=== PATIENT | male | born 1985 | race Caucasian/White ===

== ENCOUNTER 2019-03-02 13:02 | Emergency (ER) | payer OTHER ==
[2019-03-02] MEDS ORDERED: NS 0.9% 1000 ML** 1,000 ML IV ONE (13:21)
--- OUTSIDE RECORDS SUMMARY | 2019-03-02 13:21 | XMS REPORT | Summary of Care ---
:1985 Author Organization [facility] Address [address] [place] [address] Care Team Providers Name Role Phone Pcp, No Primary Care Provider Unavailable Reason for Visit Reason Comments Alcohol Intoxication Abnormal Lab Encounter Details Date Type Department Care Team Description 02/21/2019 Emergency EMERGENCY DEPARTMENT Larissa Mace, DO [address] [place] [address] [phone] Alcoholic intoxication without complication (Primary Dx); Joan Miguel, DO [address] [place] [address] [phone] Alcohol abuse [address] [place] [address] Allergies Active Allergy Reactions Severity Noted Date Comments Penicillins Rash, Other (See Comments) Low 10/18/2012 convulsions documented as of this encounter (statuses as of 02/21/2019) Medications Medication Sig Dispensed Refills Start Date End Date Status folic acid (FOLVITE) 1 Take 1 tablet by 30 tablet 11 05/14/20182019 Active MG tablet mouth daily propranolol (INDERAL) Take 1 tablet by 90 tablet 1 05/13/2018 05/12/2019 Active 10 MG tablet mouth Three times daily thiamine (B-1) 100 MG Take 1 tablet by 30 tablet 11 05/14/2018 05/13/2019 Active tablet mouth daily gabapentin (NEURONTIN) Taper 400 mg TID 6 capsule 0 05/13/2018 Active 400 MG capsule x 1 day, 400 mg BID x 1 day, then 400 mg daily x 1 day then stop documented as of this encounter (statuses as of 02/21/2019) Active Problems Problem Noted Date Alcohol withdrawal 05/10/2018 Acute alcoholic gastritis without hemorrhage 05/10/2018 Dependence on nicotine from cigarettes 05/10/2018 Alcohol abuse, continuous 07/21/2014 Overview: Monitor for withdrawal Cellulitis of hand 07/21/2014 Overview: ID consult recommends ceftriaxone 2 g IV daily and three days of Clindamycin 900 mg IV Q8H for 3 days. No obvious fluid collection. CT scan read pending. Alcoholic hepatitis 07/21/2014 Overview: Mild. Will rincon patient on alcohol abuse. documented as of this encounter (statuses as of 02/21/2019) Social History Tobacco Use Types Packs/Day Years Used Date Current Every Day Smoker Alcohol Use Drinks/Week oz/Week Comments Yes 5 Cans of beer 5.0 daily Sex Assigned at Date Recorded Not on file Job Start Date Occupation Industry Not on file Not on file Not on file Travel History Travel Start Travel End No recent travel history available. documented as of this encounter Last Filed Vital Signs Vital Sign Reading Time Taken Comments Blood Pressure 139/89 02/21/2019 11:37 AM EST Pulse 96 02/21/2019 11:37 AM EST Temperature 36.9 02/21/2019 11:37 AM EST C (98.5 F) Respiratory Rate 18 02/21/2019 11:37 AM EST Oxygen Saturation 96% 02/21/2019 11:37 AM EST Inhaled Oxygen Concentration - - Weight 86.6 kg (191 lb) 02/21/2019 12:18 AM EST Height 180.3 cm (5' 11") 02/21/2019 12:18 AM EST Body Mass Index 26.64 02/21/2019 12:18 AM EST documented in this encounter Discharge Instructions AttachmentsThe following attachments cannot be sent through Care Everywhere.Alcohol Abuse (Spanish)Alcohol Intoxication (Spanish)documented in this encounter Progress Notes Kavya Sanchez, PRACTICING UROLOGIST - 02/21/2019 8:38 AM EST Social Work Screening Patient Name: Deny Mcwilliams Date of : 1985 County of Residence: [place] Admitting Dx: No admission diagnoses are documented for this encounter. Admitting Provider: Pop Mace DO Referral Type: Substance Abuse Referral Source: Social Work Reason for Referral: Substance Use/Abuse Date: February 21, 2019 Informant: Chart/ Chacorta Pinon MD Informed that pt was transferred from [facility] as no RN was available. Message left on [employer] voicemail to contact SW regarding transferring pt back. Awaiting callback. Interventions Assessed for SW needs. Signature: Kavya Sanchez Date: February 21, 2019 documented in this encounter Plan of Treatment Not on filedocumented as of this encounter Results Not on filedocumented in this encounter Visit Diagnoses Diagnosis Alcoholic intoxication without complication - Primary Alcohol abuse Alcohol abuse, unspecified documented in this encounter Administered Medications Medication Order MAR Action Action Date Dose Rate Site LORazepam (ATIVAN) tablet 1 mg Given 02/21/2019 8:40 AM EST 1 mg 1 mg, Oral, Once, Thu02/21/19 at 0845, For 1 dose LORazepam (ATIVAN) tablet 1 mg Given 02/21/2019 10:49 AM EST 1 mg 1 mg, Oral, Once, Thu02/21/19 at 1030, For 1 dose ondansetron (ZOFRAN-ODT) disintegrating tablet Given 02/21/2019 10:49 AM EST 4 mg 4 mg 4 mg, Oral, Once, Thu02/21/19 at 1030, For 1 dose, Dissolve on tongue., documented in this encounter
[2019-03-02] MEDS ORDERED: Clindamycin CAP* 150 MG PO ONE (13:22)
[2019-03-02] MEDS ORDERED: LORazepam TAB(*) 1 MG PO ONE (13:22)
--- NOTE | 2019-03-02 13:26 | ED ---
Medical Screening - HPI Summary HPI Summary: The patient is a 34 y/o male presenting to [facility] with need for medical exam for clearance in order to be able to go to rehab for alcohol abuse. He reports that he and his family have decided that it would be best for him to turn to rehabilitation services, and he was accepted at the [facility]. He last drank last night around 2114, and he has drunk 12-15 24oz cans of alcohol daily. When he used the breathalyzer in order to go to the facility, he had a MARY of 0.035, so he needs to be medically cleared. He additionally notes anxiety/tremors, myalgia, arthralgia, and right upper ( second from last) and left lower dental pain (second from last) that has worsened over the last day with pain radiating into the jaw causing a headache. Pain is rated 8/10 in severity. He states that he has withdrawn before from alcohol but has never suffered from seizures as a result. PMHx: fractured vertebrae and ribs. Current smoker, daily EtOH, marijuana use. Medications reviewed. Allergies noted. - History of Current Complaint Chief Complaint: EDDentalPain Stated Complaint: GENERAL ILLNESS Time Seen by Provider: 03/02/19 13:06 Onset/Duration: Still Present Severity: moderate Associated Signs and Symptoms: Other - tremors, myalgia, arthralgia, dental pain , headache PMH/Surg Hx/FS Hx/Imm Hx Endocrine/Hematology History: Denies: Hx Diabetes Respiratory History: Denies: Hx Asthma Musculoskeletal History: Reports: Hx of Fracture(s) - vertebral, ribs - Surgical History Surgical History: None Surgery Procedure, Year, and Place: none Infectious Disease History: No Infectious Disease History: Denies: Traveled Outside the [place] in Last 30 Days - Family History Known Family History: Negative: Diabetes - Social History Alcohol Use: Daily Hx Substance Use: Yes Substance Use Type: Reports: Marijuana Hx Tobacco Use: Yes Smoking Status (MU): Current Some Day Smoker Review of Systems Positive: Dental Pain - right upper and left lower Positive: Arthralgia, Myalgia Neurological: Other - tremors Positive: Headache All Other Systems Reviewed And Are Negative: Yes Physical Exam - Summary Physical Exam Summary: Constitutional: Well-developed, Well-nourished, Alert. (-) Distressed Skin: Warm, Dry HENT: Poor dentition, cavitities of L lower 2nd molar and R upper 2nd molars, no periapical abscess, no trismus, no submandibular fullness ; Normocephalic; Atraumatic Eyes: Conjunctiva normal Neck: Musculoskeletal ROM normal neck. (-) JVD, (-) Stridor, (-) Nuchal rigidity Cardio: Rhythm regular, rate normal, Heart sounds normal; Intact distal pulses; Radial pulses are 2+ and symmetric. (-) Murmur Pulmonary/Chest wall: Effort normal. (-) Respiratory distress, (-) Wheezes, (-) Rale Abd: Soft, (-) tenderness, (-) Distension, (-) Guarding, (-) Rebound Musculoskeletal: (-) Edema Lymph: (-) Cervical adenopathy Neuro: Alert, Oriented x3. no tongue fasiculations, mild hand tremors Psych: Anxious but otherwise normal Triage Information Reviewed: Yes Vital Signs On Initial Exam: Initial Vitals Temp Pulse Resp BP Pulse Ox 98 F 97 16 154/95 97 03/02/19 13:04 03/02/19 13:04 03/02/19 13:04 03/02/19 13:04 03/02/19 13:04 Vital Signs Reviewed: Yes Procedures - Sedation Patient Received Moderate/Deep Sedation with Procedure: No Diagnostics - Vital Signs Vital Signs Temp Pulse Resp BP Pulse Ox 03/02/19 13:04 98 F 97 16 154/95 97 - Laboratory Result Diagrams: 03/02/19 13:34 03/02/19 13:34 Lab Statement: Any lab studies that have been ordered have been reviewed, and results considered in the medical decision making process. - EKG 1328 Cardiac Rate: NL - 79 bpm EKG Rhythm: Sinus Rhythm Summary of EKG Findings: An EKG at 1328 reveals normal sinus rhythm 79 bpm, nml axis, nml intervals. No STEMI. No acute changes. ED physician has reviewed and interpreted this EKG. Re-Evaluation - Re-Evaluation First Eval Re-Evaluation Time: 13:20 Comment: Patient states he is anxious, will administer Ativan Course/Dx - Course Course Of Treatment: 34-year-old male presenting for medical clearance, as well as dental pain. Physical examination anxious male, no obvious dental abscess on exam. We'll treat w clindamycin given reported dental infection and pain. Patient does not appear to be actively withdrawing, we'll give 1 mg of Ativan for anxiety. He can go through detox at his facility. We'll check labs for medical clearance. - Diagnoses Provider Diagnoses: Alcohol use disorder, Pain, dental Discharge ED - Sign-Out/Discharge Documenting (check all that apply): Patient Departure - Patient will be discharged home. - Discharge Plan Condition: Stable Disposition: HOME Prescriptions: Clindamycin HCl 450 mg PO DAILY 7 Days #63 capsule Patient Education Materials: Toothache (ED) Referrals: [facility] [Outside] Additional Instructions: Deny was seen in the ER for medical clearance. His EKG was normal. His labs did not show evidence of intoxication. He should take clindamycin 3 times a day for one week for a dental infection. Follow up with a dentist. Return for new or worsening symptoms. - Billing Disposition and Condition Condition: STABLE Disposition: Home - Attestation Statements Document Initiated by Jessica: Yes Documenting Scribe: Roberta Goddard Provider For Whom Jessica is Documenting (Include Credential): Dr. Jamil Moon MD Scribe Attestation: Roberta Miller scribed for Dr. Jamil Moon MD on 03/02/19 at 1523. Scribe Documentation Reviewed: Yes Provider Attestation: The documentation as recorded by the Roberta payne accurately reflects the service I personally performed and the decisions made by me, Dr. Jamil Moon MD Status of Scribe Document: Viewed
[2019-03-02 13:54] LABS: ABS Eosinophils 0.1 10^3/ul (0-0.6); ABS Lymphocytes 1.3 10^3/ul (1.0-4.8); ABS Monocytes 0.9 10^3/ul (0-0.8); ABS Neutrophils 3.9 10^3/ul (1.5-7.7); Eosinophil % 1.3 %; Hematocrit 39 % (42-52); Hemoglobin 14.2 g/dL (14.0-18.0); Lymphocyte % 20.6 %; Mean Corpuscular HGB Conc 36 g/dL (31-36); Mean Corpuscular Hemoglobin 36 pg (27-31); Mean Corpuscular Volume 100 fL (80-94); Mean Platelet Volume 8.3 fL (7.4-10.4); Nucleated Red Blood Cells % 0.2; Platelet Count 211 10^3/uL (150-450); Red Blood Count 3.96 10^6 /uL (4.18-5.48); Red Cell Distribution Width 13 % (10-15); White Blood Count 6.3 10^3/uL (3.5-10.8)
[2019-03-02 14:19] LABS: Blood Urea Nitrogen 13 mg/dL (6-24); CO2 Carbon Dioxide 31 mmol/L (22-32); Chloride 101 mmol/L (101-111); EGFR Non-African American 105.4 (>60); Glucose 94 mg/dL (70-100); Total Protein 6.1 g/dL (6.4-8.9)
[2019-03-02 14:34] LABS: Acetaminophen < 15 mcg/mL; Alcohol < 10 mg/dL (<10); Salicylate < 2.50 mg/dL (<30)
[2019-03-02 14:37] LABS: Anion Gap 6 mmol/L (2-11); Calcium 9.1 mg/dL (8.6-10.3); Sodium 137 mmol/L (135-145)
[2019-03-02 14:41] LABS: TSH (Thyroid Stimulating Horm) 2.56 mcIU/mL (0.34-5.60)
[2019-03-02 14:46] LABS: ALT 27 U/L (7-52); Alkaline Phosphatase 93 U/L (34-104); BUN/Creatinine Ratio 13.3 (8-20); EGFR African American 105.3 (>60)
[2019-03-02 14:47] LABS: Albumin/Globulin Ratio 1.9 (1-3); Globulin 2.1 g/dL (2-4)
[2019-03-02 15:33] LABS: Urine Appearance Cloudy; Urine Bilirubin Negative (Negative); Urine Blood Negative (Negative); Urine Color Straw; Urine Glucose Negative (Negative); Urine Ketones Negative (Negative); Urine Nitrite Negative (Negative); Urine Protein Negative (Negative); Urine Specific Gravity 1.012 (1.010-1.030); Urine Urobilinogen Negative (Negative)
[2019-03-02] MEDS ORDERED: Acetaminophen TAB* 325 MG PO ONE (15:38)
[2019-03-02 15:39] VITALS: BP 151/94
[2019-03-02 15:58] LABS: Urine Benzodiazepine Screen Presumptive Positive (None Detect); Urine Opiates Screen None Detected (None Detect)
== END 2019-03-02 15:38 | disposition home or self-care (01) ==
LOC: ED 13:02
DX: F10.980 Alcohol use, unspecified with alcohol-induced anxiety disorder (principal); K08.89 Other specified disorders of teeth and supporting structures; K02.9 Dental caries, unspecified; R25.1 Tremor, unspecified; M79.10 Myalgia, unspecified site; M25.50 Pain in unspecified joint; R51 Headache; Z72.0 Tobacco use
CPT/HCPCS: 36415; 80053; 80307; 80320; 80329; 81003; 84443; 85025; 93005; 96360; 96361; 99282; A9270-GY; G0480